=== PATIENT | female | born 1945 | race Caucasian/White ===

== ENCOUNTER 2024-01-14 10:11 | Emergency (ER) | payer MEDICARE, OTHER, SELFPAY ==
[2024-01-14 10:18] VITALS: BP 126/68
[2024-01-14 11:01] VITALS: BP 132/77
[2024-01-14 11:19] LABS: % Basophils 0.1 % (0-2); % Eosinophils 0.4 % (0-6); % Immature Granulocytes 0.3 % (0-0.5); % Lymphocytes 15.3 % (20.5-51.1); % Monocytes 6.1 % (1.7-9.3); % Neutrophils 77.8 % (42.2-75.2); Absolute Lymphocytes 1.2 10^3/uL (1.2-3.4); Absolute Monocytes 0.5 10^3/uL (0.1-0.6); Hemoglobin 14.6 g/dL (12.0-16.0); Mean Corp Hgb Conc. 34.8 g/dL (33.0-37.0); Mean Corpuscular Volume 92.1 fL (81.0-99.0); Mean Platelet Volume 9.5 fL (7.4-10.4); Nucleated Red Blood Cells % 0 %; Platelet Count 246 10^3/uL (130-400); Red Blood Cell Count 4.56 10^6/uL (4.20-5.40); Red Cell Dist. Width 12.8 % (11.5-14.5); White Blood Cell Count 7.7 10^3/uL (4.8-10.8)
[2024-01-14 11:31] LABS: ALT (SGPT) 21 U/L (0-35); AST (SGOT) 35 U/L (14-36); Albumin 4.1 g/dl (3.5-5.0); Alkaline Phosphatase 97 U/L (38-126); Blood Urea Nitrogen 15 mg/dl (7-17); Calcium 9.9 mg/dl (8.4-10.2); Carbon Dioxide 30 mmol/L (22-30); Chloride 101 mmol/L (98-107); Glucose 103 mg/dl (70-99); Lipase 61 U/L (23-300); Potassium 4.4 mmol/L (3.5-5.1); Sodium 139 mmol/L (135-145); Total Bilirubin 0.8 mg/dl (0.2-1.3); Total Protein 6.5 g/dl (6.3-8.2); eGFR > 60.00
[2024-01-14 12:00] VITALS: BP 118/64
[2024-01-14 12:13] LABS: Urine Albumin Negative (Neg - Trace); Urine Bilirubin Negative (Negative); Urine Character Clear (Clear); Urine Color Yellow; Urine Glucose Negative (Negative); Urine Ketone Negative (Negative); Urine Leukocyte 1+ (Negative); Urine Nitrite Negative (Negative); Urine Occult Blood Negative (Negative); Urine Urobilinogen Negative (Neg - 1+)
[2024-01-14 12:56] LABS: Urine Bacteria Few (Negative)
--- NOTE | 2024-01-14 13:47 | ED.GENMED ---
History of Present Illness
General
Chief Complaint: Abdominal Pain
Source: patient and family
Exam Limitations: none
Time Seen by Provider: 01/14/24 10:38
History of Present Illness
History of Present Illness:
78-year-old female presents with lower abdominal pain began yesterday. She states it kind of comes and goes. She did have a little bit of nausea and vomiting that seems a little better. The pain on my evaluation is a little bit improved. No
melena or hematochezia. No dysuria. No injury.
Past History
Past History
ED Past Medical History: Arrthythmia, Cancer (Cervical), HTN, Hypercholesterolemia and Other (Cataracts, breast cancer, cervical cancer)
ED Past Surgical History: Cardiac (Pacemaker), Cholecystectomy, Gynecological, Orthopedic and Other (the patient had a voluntary nephrectomy when she donated a kidney to her . )
Social History
Tobacco: Non-smoker
Alcohol: Occasional
Personal:
Living: with family
Employment: Retired
Phy Exam
Physical Exam
Physical Exam:
CONSTITUTIONAL Patient alert and oriented to person, place and time. Well-appearing. Vital signs reviewed.
HEAD atraumatic, normocephalic.
EYES eyelids normal to inspection, Extraocular muscles intact, Conjunctiva normal, Sclera normal.
NECK normal range of motion, Trachea midline, no jugular venous distention.
RESPIRATORY CHEST No respiratory distress noted, Chest expansion equal
ABDOMEN lower moderate midline and left lower quadrant tenderness, no rebound, no guarding, no distention.
BACK normal inspection, no obvious deformities
UPPER EXTREMITY range of motion normal, Motor strength normal, no cyanosis, no edema.
LOWER EXTREMITY range of motion normal, Motor strength normal, no cyanosis, no edema.
NEURO Speech normal, No focal motor deficits, [place] coma scale 15, Memory normal, Cranial Nerves intact to screening exam.
SKIN skin warm, dry, and normal in color.
PSYCHIATRIC patient oriented to person place and time, Normal affect.
Course
Orders/Labs/Results
Orders:
Orders
01/14/24 10:55
CT Abd/Pel (IV only)-DH only Urgent
Comment:
Reason For Exam: lower abd pain, h/o single kidney
01/14/24 10:58
Complete Blood Count/With Diff Urgent
Urinalysis Reflex To Culture Urgent
Date Specimen was Collected: 01/14/24
Time Specimen was Collected: 10:52
Urine Microscopic Reflex Cult Urgent
Urine Culture Urgent
YUDI Source: U
Specimen Description:
Date Specimen was Collected: 01/14/24
Time Specimen was Collected: 10:52
01/14/24 10:59
Comprehensive Metabolic Panel Urgent
Lipase Urgent
01/14/24 13:34
Amoxicillin 875 mg/Clav 125 mg [Augmentin 875 mg/125 mg] 1 tablet PO NOW STA
Abnormal Lab Results
01/14/24 01/14/24
10:58 10:59
MCH 32.0 H pg
(27.0-31.0)
Neutrophils % 77.8 H %
(42.2-75.2)
Lymphocytes % 15.3 L %
(20.5-51.1)
Glucose 103 H mg/dl
(70-99)
Leukocyte Esterase Rfl 1+ A
(Negative)
Urine RBC 3-6 A /HPF
(0-2)
Urine Bacteria (Reflex) Few A
(Negative)
01/14/24 10:58
01/14/24 10:59
Vital Signs
Initial and Last Documented VS:
Initial Vital Signs
Temp Pulse Resp BP Pulse Ox
98.0 F 91 16 126/68 99
01/14/24 10:18 01/14/24 10:18 01/14/24 10:18 01/14/24 10:18 01/14/24 10:18
Last Documented Vital Signs
Temp Pulse Resp BP Pulse Ox
98.0 F 75 17 118/64 97
01/14/24 10:18 01/14/24 12:45 01/14/24 12:45 01/14/24 12:00 01/14/24 12:45
MDM/Problems Addressed
MDM/Problems Addressed:
Acute diverticulitis
*Radiology
Radiology exam reviewed: preliminary read by ED provider (no free air noted) and radiology read reviewed
*Pulse Oximetry
Patient hypoxic: no
*Critical Care Note
Total Time (30-74mins, 75-104mins- exclusive of procedures): Not Applicable
Data Reviewed
Review of Other/Old Records Reveals: Discharge Summary (from 03/12 reviewed. h/o SBO)
Source: patient
Prescriptions/Medications Considered But Not Given:
Consider Levaquin but given her singular kidney decided upon Augmentin
Patient Management
Escalation/DeEscalation of care consider admission/obs:
Patient stable. I do think she is stable for outpatient management. Initiate antibiotics. Okay for discharge and outpatient follow-up
ED Attending Note
-
Portions of this chart may have been created with voice recognition software.� Occasional wrong word or��sound alike� substitutions may have occurred due to the inherent limitations of voice recognition software.
Discharge Plan
Departure
Patient Disposition: Home (Routine Discharge)
Date of Disposition: 01/14/24
Time of Disposition: 13:52
Patient with high blood pressure during this ER visit?: No
Discharge Problem:
Acute diverticulitis
Instructions: Diverticulitis (DC)
Prescriptions:
New
amoxicillin-pot clavulanate 875-125 mg tablet
1 tab PO Q12H Qty: 20 0RF
No Action
biotin 10 MG tablet
10 mg PO DAILY
Multivitamin Women 50 Plus 1 EACH tablet
1 ea PO DAILY
enalapril maleate 10 MG tablet
10 mg PO DAILY
verapamil 120 mg Tablet Extended Release
120 mg PO BID
enalapril maleate 20 mg Tablet
20 mg PO HS
calcium carbonate 500 mg calcium (1,250 mg) Tablet
500 mg PO DAILY
oxycodone 5 mg Tablet
5 mg PO Q4HPRN PRN (Reason: moderate pain) Qty: 10 0RF
Referrals:
Emmanuel Sigala MD [Family Provider] -
Activity Restrictions/Additional Instructions:
Return immediately for worsening pain, intractable vomiting, fevers, weakness, inability to take the antibiotics or any other concerns.
Please see your doctor in the next 3 days for follow-up and reevaluation.
Interventions
Interventions:
*Risk Screen - Suicide Last Done: 01/14/24 10:53
*General Assessment Last Done: 01/14/24 10:18
*Neglect/Abuse Screening Last Done: 01/14/24 10:53
ED- Fall Risk Assessment Last Done: 01/14/24 10:53
*ED COVID-19 Vaccine History Last Done: 01/14/24 10:18
SD-Yzruwq-Knshuvlpnj Assessment Last Done: 01/14/24 10:53
Discharge Date and Time
Print Language: YAKUT
[2024-01-14] MEDS: AUGMENTIN 875 MG/125 MG 1 TABLET PO (13:50)
== END 2024-01-14 14:16 | disposition home or self-care (01) ==
LOC: EMR 10:11
PROVIDERS: EMERGENCY PHYSICIAN Emergency Medicine; FAMILY PHYSICIAN Internal Medicine
DX: K57.32 Diverticulitis of large intestine without perforation or abscess without bleeding (principal); R11.2 Nausea with vomiting, unspecified; I10 Essential (primary) hypertension; E78.00 Pure hypercholesterolemia, unspecified; Z95.0 Presence of cardiac pacemaker; Z85.3 Personal history of malignant neoplasm of breast; Z85.41 Personal history of malignant neoplasm of cervix uteri; Z90.49 Acquired absence of other specified parts of digestive tract; Z90.5 Acquired absence of kidney; Z88.7 Allergy status to serum and vaccine
CPT/HCPCS: 99285; 74177; 80053; 81003; 81015; 83690; 85025; 87086; Q9967

== ENCOUNTER 2024-02-08 17:44 | Emergency (ER) | payer MEDICARE, OTHER, SELFPAY ==
[2024-02-08 17:44] VITALS: BMI 32.3
[2024-02-08 17:47] VITALS: BP 166/77
[2024-02-08 18:03] LABS: % Basophils 0.1 % (0-2); % Immature Granulocytes 0.3 % (0-0.5); % Lymphocytes 16.4 % (20.5-51.1); % Monocytes 6.9 % (1.7-9.3); % Neutrophils 76.3 % (42.2-75.2); Absolute Lymphocytes 2.2 10^3/uL (1.2-3.4); Absolute Monocytes 0.9 10^3/uL (0.1-0.6); Absolute Neutrophils 10.4 10^3/uL (1.4-6.5); Hematocrit 41.2 % (37.0-47.0); Hemoglobin 14.5 g/dL (12.0-16.0); Mean Corp Hgb Conc. 35.2 g/dL (33.0-37.0); Mean Corpuscular Hgb 31.1 pg (27.0-31.0); Mean Corpuscular Volume 88.4 fL (81.0-99.0); Mean Platelet Volume 9.4 fL (7.4-10.4); Nucleated Red Blood Cells % 0 %; Platelet Count 318 10^3/uL (130-400); Red Blood Cell Count 4.66 10^6/uL (4.20-5.40); Red Cell Dist. Width 13.2 % (11.5-14.5); White Blood Cell Count 13.6 10^3/uL (4.8-10.8)
[2024-02-08 18:21] LABS: ALT (SGPT) 33 U/L (0-35); AST (SGOT) 42 U/L (14-36); Albumin 4.2 g/dl (3.5-5.0); Alkaline Phosphatase 93 U/L (38-126); Blood Urea Nitrogen 30 mg/dl (7-17); Calcium 9.7 mg/dl (8.4-10.2); Carbon Dioxide 26 mmol/L (22-30); Chloride 97 mmol/L (98-107); Glucose 98 mg/dl (70-99); Potassium 4.7 mmol/L (3.5-5.1); Sodium 136 mmol/L (135-145); Total Bilirubin 0.4 mg/dl (0.2-1.3); Total Protein 6.6 g/dl (6.3-8.2); eGFR 56.95
[2024-02-08 18:30] LABS: Lactic Acid 1.6 mmol/L (0.7-2.0)
[2024-02-08 18:41] LABS: Lipase 76 U/L (23-300)
--- NOTE | 2024-02-08 20:32 | ED.GENMED ---
History of Present Illness
General
Chief Complaint: Abdominal Pain
Time Seen by Provider: 02/08/24 20:10
History of Present Illness
History of Present Illness:
78-year-old female with history of hypertension, bowel obstruction presenting for upper abdominal pain. Patient reports symptoms for the past 2 to 3 days. Notes nausea without vomiting, has had decreased p.o. intake. Denies chest pain. Denies
difficulty breathing. Reports surgical history of cholecystectomy and history of bowel obstruction. Also reports recent hospital visit on 01/13 for diverticulitis, was treated with antibiotics. Her symptoms at that time her lower abdominal pain
which have improved. Denies any diarrhea or constipation. Denies fevers. Denies additional acute medical complaints
Past History
Past History
ED Past Medical History: Arrthythmia, Cancer (Cervical), HTN, Hypercholesterolemia and Other (Cataracts, breast cancer, cervical cancer)
ED Past Surgical History: Cardiac (Pacemaker), Cholecystectomy, Gynecological, Orthopedic and Other (the patient had a voluntary nephrectomy when she donated a kidney to her . )
Social History
Tobacco: Non-smoker
Alcohol: Occasional
Personal:
Living: with family
Employment: Retired
Phy Exam
Physical Exam
Physical Exam:
General: Well-appearing, no clinical signs of dehydration, nontoxic and in no acute distress
HEENT: protecting airway
Neck: appears supple
CV: Normal heart rate, regular rhythm
Resp: No accessory muscle use, no increased work of breathing, lungs clear to auscultation bilaterally
Abd: Soft and non-distended, generalized tenderness to the upper abdomen, no rebound or guarding
Extremities: No deformities, no swelling, no erythema
Neuro: alert, no focal neurologic deficit
: deferred
Rectal: deferred
Psych: Normal affect
Skin: Intact
Course
Orders/Labs/Results
Orders:
Orders
02/08/24 17:54
Complete Blood Count/With Diff Urgent
Comprehensive Metabolic Panel Urgent
Lactate Level [Lactic Acid] Urgent
Lipase Urgent
02/08/24 20:25
0.9% Sodium Chloride 1000 ml [Nss] 1,000 ml IV BOLUS
Ketorolac [Toradol] 15 mg IV NOW STA
02/08/24 20:26
CT Abd/pelvis W Iv Cont Urgent
Comment:
Reason For Exam: upper abd pain, hx isha and obstruction
02/08/24 20:33
Electrocardiogram (*1) Urgent
Reason for Study: Abdominal Pain
EKG- Treatment ONCE
Abnormal Lab Results
02/08/24
17:54
WBC 13.6 H 10^3/uL
(4.8-10.8)
MCH 31.1 H pg
(27.0-31.0)
Absolute Neuts (auto) 10.4 H 10^3/uL
(1.4-6.5)
Absolute Monos (auto) 0.9 H 10^3/uL
(0.1-0.6)
Neutrophils % 76.3 H %
(42.2-75.2)
Lymphocytes % 16.4 L %
(20.5-51.1)
Chloride 97 L mmol/L
(98-107)
BUN 30 H mg/dl
(7-17)
AST 42 H U/L
(14-36)
02/08/24 17:54
02/08/24 17:54
Vital Signs
Initial and Last Documented VS:
Initial Vital Signs
Temp Pulse Resp BP Pulse Ox
98.3 F 73 20 166/77 98
02/08/24 17:47 02/08/24 17:47 02/08/24 17:47 02/08/24 17:47 02/08/24 17:47
Last Documented Vital Signs
Temp Pulse Resp BP Pulse Ox
98.3 F 73 20 133/73 95
02/08/24 17:47 02/08/24 17:47 02/08/24 17:47 02/08/24 23:00 02/08/24 23:00
MDM/Problems Addressed
MDM/Problems Addressed:
78-year-old female with history of hypertension and bowel obstruction presenting for upper abdominal pain for the past few days. Vital signs on arrival significant for mild hypertension.
On exam, patient well-appearing, no acute distress, nontoxic. Generalized tenderness to the upper abdomen. Patient with history of cholecystectomy in the past, with lower suspicion for gallbladder pathology. Patient had laboratory analysis prior
to my assessment, mild leukocytosis, normal lipase without concern for pancreatitis. Enteritis versus obstruction is a consideration, due to prior history. Given symptoms with leukocytosis, will obtain CT imaging. IV fluids and Toradol
administered for therapeutics
23:10 -patient's labs unremarkable. CT without acute intra-abdominal pathology. On reassessment, does report some symptom improvement. At this time, feel stable for discharge with continued outpatient primary care follow-up. Will prescribe
Zofran. Return precautions discussed and patient verbalized understanding
*Critical Care Note
Total Time (30-74mins, 75-104mins- exclusive of procedures): Not Applicable
ED Attending Note
-
Portions of this chart may have been created with voice recognition software.� Occasional wrong word or��sound alike� substitutions may have occurred due to the inherent limitations of voice recognition software.
Discharge Plan
Departure
Prescriptions:
No Action
biotin 10 MG tablet
10 mg PO DAILY
Multivitamin Women 50 Plus 1 EACH tablet
1 ea PO DAILY
enalapril maleate 10 MG tablet
10 mg PO DAILY
verapamil 120 mg Tablet Extended Release
120 mg PO BID
enalapril maleate 20 mg Tablet
20 mg PO HS
calcium carbonate 500 mg calcium (1,250 mg) Tablet
500 mg PO DAILY
oxycodone 5 mg Tablet
5 mg PO Q4HPRN PRN (Reason: moderate pain) Qty: 10 0RF
amoxicillin-pot clavulanate 875-125 mg tablet
1 tab PO Q12H Qty: 20 0RF
Referrals:
Emmanuel Sigala MD [Family Provider] -
Interventions
Interventions:
*Risk Screen - Suicide Last Done: 02/08/24 21:27
*General Assessment Last Done: 02/08/24 17:47
*Neglect/Abuse Screening Last Done: 02/08/24 21:27
*ED COVID-19 Vaccine History Last Done: 02/08/24 21:27
VV-Wdphxm-Lrwghqlyhi Assessment Last Done: 02/08/24 21:25
Discharge Date and Time
Print Language: BELGIAN
[2024-02-08 21:25] VITALS: BP 154/71
[2024-02-08] MEDS: TORADOL 15 MG IV (21:45)
[2024-02-08] MEDS: NSS 1000 IV (21:45)
[2024-02-08 22:06] VITALS: BP 157/71
[2024-02-08 23:00] VITALS: BP 133/73
== END 2024-02-09 | disposition home or self-care (01) ==
LOC: EMR 17:44
PROVIDERS: Emergency Medicine; EMERGENCY PHYSICIAN Student in an Organized Health Care Education/Training Program; FAMILY PHYSICIAN Internal Medicine
DX: R10.10 Upper abdominal pain, unspecified (principal); R11.0 Nausea; I10 Essential (primary) hypertension; E78.00 Pure hypercholesterolemia, unspecified; K57.92 Diverticulitis of intestine, part unspecified, without perforation or abscess without bleeding; Z85.41 Personal history of malignant neoplasm of cervix uteri; Z85.3 Personal history of malignant neoplasm of breast; Z95.0 Presence of cardiac pacemaker; Z90.49 Acquired absence of other specified parts of digestive tract; Z90.5 Acquired absence of kidney; Z52.4 Kidney donor; Z88.7 Allergy status to serum and vaccine
CPT/HCPCS: 99285; 96361; 96374; 74177; 80053; 83605; 83690; 85025; 93005; Q9967

== ENCOUNTER 2024-03-13 01:23 | Emergency (ER) | payer MEDICARE, OTHER, SELFPAY ==
[2024-03-13 01:25] VITALS: BP 153/76
[2024-03-13 03:21] VITALS: BP 145/70
--- NOTE | 2024-03-13 03:44 | ED.GENMED ---
History of Present Illness
<TOLU Toth - Last Filed: 03/13/24 07:14>
General
Chief Complaint: Abdominal Symptoms
Source: patient and family
Exam Limitations: none
Time Seen by Provider: 03/13/24 03:18
Nursing documentation reviewed up to this point in time: agreed with
History of Present Illness
History of Present Illness:
Patient is an 78 yo F w/ PMH of diverticulitis, HTN, and pacemaker who presents to the ED w/ nausea x 8hrs. Pt was drinking colonoscopy prep as direct, started at 6 pm, drank around 34oz before starting to feel ill around 7:30p. Reports she started
to shake and felt very nausea. She reports 1 episode of vomiting immediately after drinking prep. Reports 5-6 episodes of diarrhea. Also admits to lightheadedness and chills x8hrs. Denies SMITH, dizziness, and stomach pain. Notes recent dx of
diverticulitis and is currently on abx. Colonoscopy is for routine screening.
Past History
<TOLU Toth - Last Filed: 03/13/24 07:14>
Past History
ED Past Medical History: Arrthythmia, Cancer (Cervical), HTN, Hypercholesterolemia and Other (Cataracts, breast cancer, cervical cancer)
ED Past Surgical History: Cardiac (Pacemaker), Cholecystectomy, Gynecological, Orthopedic and Other (the patient had a voluntary nephrectomy when she donated a kidney to her . )
Social History
Tobacco: Non-smoker
Alcohol: Occasional
Personal:
Living: with family
Employment: Retired
Review of Systems
<TOLU Toth - Last Filed: 03/13/24 07:14>
Review of Systems
Constitutional: Reports fatigue and chills; Denies fever
Respiratory: Denies cough or trouble breathing
Cardiac: Denies chest pain or palpitations
ABD/GI: Reports abdominal pain, nausea, vomiting and diarrhea; Denies constipated
: Denies dysuria
Musculoskeletal: Denies joint pain, muscle pain or neck pain
Neurological: Reports weakness; Denies dizzy, headache or numbness
Phy Exam
<Nissa Rider [facility] - Last Filed: 03/13/24 07:14>
General Physical Exam
General Presentation: moderate distress
General age: appears stated age
General Skin: warm and dry
General Habitus: normal
General Mental: alert
Eye Exam
Eye Exam: PERRL
Cardiovascular Exam
Cardiovascular Exam: regular rate/rhythm, no edema, no gallop and no murmur
Pulmonary Exam
Pulmonary Exam: lungs clear, no respiratory distress, no rales, no crackles, no rhonchi and no wheezing
Gastrointestinal Exam
Gastrointestinal Exam: normal bowel sounds, soft, no organomegaly, non distended and no masses
Palpation: left upper quadrant: Mild tenderness
Neurological Exam
Neurological Exam: alert, oriented x3 and speech normal
Course
<Nissa Rider [facility] - Last Filed: 03/13/24 07:14>
Orders/Labs/Results
Orders:
Orders
03/13/24 03:36
0.9% Sodium Chloride 1000 ml [Nss] 1,000 ml IV BOLUS
03/13/24 04:09
Complete Blood Count/With Diff Urgent
03/13/24 04:18
Ondansetron Injectable [Zofran] 4 mg .ROUTE .STK-MED ONE
03/13/24 05:14
Comprehensive Metabolic Panel Urgent
Abnormal Lab Results
03/13/24 03/13/24
04:09 05:14
RBC 4.19 L 10^6/uL
(4.20-5.40)
MCH 32.5 H pg
(27.0-31.0)
Abs Immat Gran (auto) 0.1 H 10^3/uL
(0-0.05)
Absolute Neuts (auto) 7.3 H 10^3/uL
(1.4-6.5)
Neutrophils % 78.4 H %
(42.2-75.2)
Lymphocytes % 14.6 L %
(20.5-51.1)
Sodium 127 L mmol/L
(135-145)
Chloride 91 L mmol/L
(98-107)
Glucose 103 H mg/dl
(70-99)
Total Protein 5.4 L g/dl
(6.3-8.2)
Albumin 3.2 L g/dl
(3.5-5.0)
03/13/24 04:09
03/13/24 05:14
Vital Signs
Initial and Last Documented VS:
Initial Vital Signs
Temp Pulse Resp BP Pulse Ox
98.4 F 82 16 153/76 99
03/13/24 01:25 03/13/24 01:25 03/13/24 01:25 03/13/24 01:25 03/13/24 01:25
Last Documented Vital Signs
Temp Pulse Resp BP Pulse Ox
98.4 F 73 16 126/63 96
03/13/24 01:25 03/13/24 07:07 03/13/24 07:07 03/13/24 07:07 03/13/24 07:07
<Cecy Lynch, DO - Last Filed: 03/13/24 06:52>
Orders/Labs/Results
Orders:
Orders
03/13/24 03:36
0.9% Sodium Chloride 1000 ml [Nss] 1,000 ml IV BOLUS
03/13/24 04:09
Complete Blood Count/With Diff Urgent
03/13/24 04:18
Ondansetron Injectable [Zofran] 4 mg .ROUTE .STK-MED ONE
03/13/24 05:14
Comprehensive Metabolic Panel Urgent
Abnormal Lab Results
03/13/24 03/13/24
04:09 05:14
RBC 4.19 L 10^6/uL
(4.20-5.40)
MCH 32.5 H pg
(27.0-31.0)
Abs Immat Gran (auto) 0.1 H 10^3/uL
(0-0.05)
Absolute Neuts (auto) 7.3 H 10^3/uL
(1.4-6.5)
Neutrophils % 78.4 H %
(42.2-75.2)
Lymphocytes % 14.6 L %
(20.5-51.1)
Sodium 127 L mmol/L
(135-145)
Chloride 91 L mmol/L
(98-107)
Glucose 103 H mg/dl
(70-99)
Total Protein 5.4 L g/dl
(6.3-8.2)
Albumin 3.2 L g/dl
(3.5-5.0)
03/13/24 04:09
03/13/24 05:14
Vital Signs
Initial and Last Documented VS:
Initial Vital Signs
Temp Pulse Resp BP Pulse Ox
98.4 F 82 16 153/76 99
03/13/24 01:25 03/13/24 01:25 03/13/24 01:25 03/13/24 01:25 03/13/24 01:25
Last Documented Vital Signs
Temp Pulse Resp BP Pulse Ox
98.4 F 73 16 126/63 96
03/13/24 01:25 03/13/24 07:07 03/13/24 07:07 03/13/24 07:07 03/13/24 07:07
<TOLU Toth - Last Filed: 03/13/24 07:14>
MDM/Problems Addressed
Differential Diagnosis Includes:
prep intolerance, diverticulitis exacerbation
<TOLU Toth - Last Filed: 03/13/24 07:14>
*Critical Care Note
Total Time (30-74mins, 75-104mins- exclusive of procedures): Not Applicable
ED Attending Note
<TOLU Toth - Last Filed: 03/13/24 07:14>
-
Portions of this chart may have been created with voice recognition software.� Occasional wrong word or��sound alike� substitutions may have occurred due to the inherent limitations of voice recognition software.
<Cecy Lynch DO - Last Filed: 03/13/24 06:52>
ED Attending Note
Patient seen and examined by attending physician: Yes
I performed the substantive portion of visit, reviewed & personally made and approve the management plan that is documented in note by myself or ARABELLA.: Yes
ED Attending Note:
This is an 78-year-old woman with history of hypertension, bowel obstruction, history of diverticulitis January 13 for which she was treated with a course of Augmentin. She does note somewhat chronic intermittent abdominal discomfort, intermittent
nausea and was evaluated in this ED February 07 with complaints of several day history of generalized upper abdominal pain, nausea vomiting. Unremarkable workup at that time including unremarkable laboratory studies and unremarkable CT abdomen
pelvis.
Since then she has been following with GI as well as her primary care physician. Was started on a 10-day course of Keflex last week by her PCP due to concern for 'and underlying infection' although admits that blood work performed by PCP was
unremarkable. She is scheduled for this morning and began colonoscopy prep yesterday evening at 6:30 PM.
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 She complains of crampy abdominal discomfort.
No dizziness nor lightheadedness but feels somewhat shaky and feels that she may be dehydrated
Has never undergone colonoscopy in the past.
GENERAL: 78-year-old woman appears her stated age, awake and alert, easily communicative and appears in no acute distress. Daughter is accompanying
EYE: anicteric
NECK: Supple, nontender, no meningismus, no significant adenopathy.
ENT: posterior pharynx is clear, oral mucosa is moist. No rhinorrhea.
CARDIAC: Regular rate and rhythm. no murmur.
LUNGS: Clear breath sounds bilaterally, no acute respiratory distress, no wheezes/rales/rhonchi
ABDOMEN: Soft, nondistended, without focal tenderness, no r/g, no cvat. Mildly hyperactive bowel sounds.
NEUROLOGICAL: Alert and oriented x3, no focal neuro deficits.
SKIN: Warm and dry, normal color, skin intact. No rash.
MUSCULOSKELETAL: No C/C/E. peripheral pulses are full and equal b/l. No palpable tenderness.
PSYCH: Normal and appropriate interaction.
I suspect nausea and diarrhea are related to colonoscopy prep. Less likely bowel obstruction, gastroenteritis, less.
Concern for electrolyte abnormality, dehydration.
Will check labs, initiate IV fluids and continue to observe.
Abdomen is overall soft, benign, at this point no indication for imaging.
03/13/2024 0650 AM
Patient has had no vomiting or diarrhea since arrival to the ED.
Overall appears comfortable.
Has ambulated to and from the bathroom to void without difficulty.
Labs show mild hyponatremia otherwise unremarkable.
At this point due to adverse reaction to colonoscopy prep with recommend she hold off on further colonoscopy prep. Recommend she touch base with her pusher operator this morning to discuss inability to complete prep and that colonoscopy may need
to be canceled/postponed.
Discussed importance of staying well-hydrated over the next few days.
Discharge Plan
Departure
Patient Disposition: Home (Routine Discharge)
Date of Disposition: 03/13/24
Time of Disposition: 06:44
Patient with high blood pressure during this ER visit?: No
Condition: Good
Discharge Problem:
diarrhea related to colonoscopy prep
Instructions: Clear Liquid Diet
Prescriptions:
No Action
biotin 10 MG tablet
10 mg PO DAILY
Multivitamin Women 50 Plus 1 EACH tablet
1 ea PO DAILY
enalapril maleate 10 MG tablet
10 mg PO DAILY
verapamil 120 mg Tablet Extended Release
120 mg PO BID
enalapril maleate 20 mg Tablet
20 mg PO HS
calcium carbonate 500 mg calcium (1,250 mg) Tablet
500 mg PO DAILY
oxycodone 5 mg Tablet
5 mg PO Q4HPRN PRN (Reason: moderate pain) Qty: 10 0RF
amoxicillin-pot clavulanate 875-125 mg tablet
1 tab PO Q12H Qty: 20 0RF
ondansetron 4 mg Tablet,Disintegrating
4 mg PO TIDPRN PRN (Reason: nausea/vomiting) Qty: 4 0RF
Referrals:
Emmanuel Sigala MD [Family Provider] -
Activity Restrictions/Additional Instructions:
Touch base with your pusher operator today to let them know you had difficulty with colonoscopy prep and were unable to finish the prep.
Interventions
Interventions:
*Risk Screen - Suicide Last Done: 03/13/24 01:25
*General Assessment Last Done: 03/13/24 07:07
*Neglect/Abuse Screening Last Done: 03/13/24 07:07
ED- Fall Risk Assessment Last Done: 03/13/24 07:12
*ED COVID-19 Vaccine History Last Done: 03/13/24 07:07
*Nursing Disposition Last Done: 03/13/24 07:12
SU-Bclerd-Shgdcrxdxr Assessment Last Done: 03/13/24 03:21
Discharge Date and Time
Discharge Date/Time: 03/13/24 07:12
Print Language: LEBANESE
[2024-03-13] MEDS: NSS 1000 IV (04:11)
[2024-03-13 04:29] LABS: % Basophils 0.3 % (0-2); % Eosinophils 0.3 % (0-6); % Immature Granulocytes 0.5 % (0-0.5); % Lymphocytes 14.6 % (20.5-51.1); % Monocytes 5.9 % (1.7-9.3); % Neutrophils 78.4 % (42.2-75.2); Absolute Immature Granulocytes 0.1 10^3/uL (0-0.05); Absolute Lymphocytes 1.4 10^3/uL (1.2-3.4); Absolute Monocytes 0.6 10^3/uL (0.1-0.6); Absolute Neutrophils 7.3 10^3/uL (1.4-6.5); Hematocrit 37.4 % (37.0-47.0); Hemoglobin 13.6 g/dL (12.0-16.0); Mean Corp Hgb Conc. 36.4 g/dL (33.0-37.0); Mean Corpuscular Hgb 32.5 pg (27.0-31.0); Mean Corpuscular Volume 89.3 fL (81.0-99.0); Mean Platelet Volume 9.3 fL (7.4-10.4); Nucleated Red Blood Cells % 0 %; Platelet Count 229 10^3/uL (130-400); Red Blood Cell Count 4.19 10^6/uL (4.20-5.40); Red Cell Dist. Width 12.9 % (11.5-14.5); White Blood Cell Count 9.3 10^3/uL (4.8-10.8)
[2024-03-13 06:00] LABS: ALT (SGPT) 18 U/L (0-35); AST (SGOT) 27 U/L (14-36); Albumin 3.2 g/dl (3.5-5.0); Alkaline Phosphatase 79 U/L (38-126); Blood Urea Nitrogen 10 mg/dl (7-17); Calcium 8.6 mg/dl (8.4-10.2); Carbon Dioxide 25 mmol/L (22-30); Chloride 91 mmol/L (98-107); Estimated Creatinine Clearance 58 ml/min; Glucose 103 mg/dl (70-99); Potassium 3.7 mmol/L (3.5-5.1); Sodium 127 mmol/L (135-145); Total Bilirubin 1.1 mg/dl (0.2-1.3); Total Protein 5.4 g/dl (6.3-8.2); eGFR > 60.00
[2024-03-13 07:07] VITALS: BP 126/63
== END 2024-03-13 07:12 | disposition home or self-care (01) ==
LOC: EMR 01:23
PROVIDERS: EMERGENCY PHYSICIAN Emergency Medicine; FAMILY PHYSICIAN Internal Medicine
DX: R19.7 Diarrhea, unspecified (principal); I10 Essential (primary) hypertension; Z95.0 Presence of cardiac pacemaker
CPT/HCPCS: 99283; 80053; 85025

== ENCOUNTER → 2024-03-28 13:32 | Outpatient (REF) | payer MEDICARE, OTHER, SELFPAY | LOC: HWRAD 13:32 | PROVIDERS: ATTENDING PHYSICIAN Neurological Surgery; FAMILY PHYSICIAN Internal Medicine | DX: D32.9 Benign neoplasm of meninges, unspecified (principal) | CPT/HCPCS: 70470; Q9967 ==

== ENCOUNTER → 2024-06-06 11:15 | Outpatient (REF) | payer MEDICARE, OTHER, SELFPAY ==
[2024-06-06 12:52] LABS: Blood Urea Nitrogen 18 mg/dl (7-17); Carbon Dioxide 30 mmol/L (22-30); Chloride 99 mmol/L (98-107); Glucose 87 mg/dl (70-99); Potassium 4.8 mmol/L (3.5-5.1); Sodium 137 mmol/L (135-145); eGFR > 60.00
== END ==
LOC: REG 11:15
PROVIDERS: ATTENDING PHYSICIAN Specialist; FAMILY PHYSICIAN Internal Medicine
DX: I10 Essential (primary) hypertension (principal); E87.1 Hypo-osmolality and hyponatremia; Q60.0 Renal agenesis, unilateral
CPT/HCPCS: 36415; 80048

== ENCOUNTER → 2024-09-01 10:31 | Outpatient (REF) | payer MEDICARE, OTHER, SELFPAY | LOC: HWRCS 10:31 | PROVIDERS: ATTENDING PHYSICIAN Internal Medicine Cardiovascular Disease; FAMILY PHYSICIAN Internal Medicine | DX: Z95.0 Presence of cardiac pacemaker (principal) | CPT/HCPCS: 93306 ==